=== PATIENT | female | born 1955 | race African-American/Black ===

== ENCOUNTER 2023-07-22 09:31 | Emergency (ER) | payer MEDICAID ==
[~2023-07-22] VITALS: Ht 167.6 cm; Wt 81.8 kg
[2023-07-22 09:32] VITALS: TEMP 97.9
[2023-07-22] MEDS ORDERED: LOSA-382 PO (09:37)
[2023-07-22] MEDS ORDERED: AMLO-258 PO (09:37)
[2023-07-22] MEDS ORDERED: ROSU20TA73 PO (09:37)
[2023-07-22] MEDS: LOSARTAN POTASSIUM 25 MG TABLET PO ONE (10:30)
[2023-07-22] MEDS ORDERED: LOSA-381 PO (11:44)
[2023-07-22 12:42] VITALS: BP 126/91; PULSE 97; RESP 16
== END 2023-07-22 12:56 | disposition home or self-care (01) ==
LOC: EMS 09:34
DX: I10 Essential (primary) hypertension (principal); H53.8 Other visual disturbances; E78.00 Pure hypercholesterolemia, unspecified
CPT/HCPCS: 70450; 99283; 99284